=== PATIENT | male | born 1960 | race African-American/Black ===

== ENCOUNTER 2019-11-20 18:07 | Emergency (ER) | payer MEDICARE, MEDICAID ==
[~2019-11-20] VITALS: Ht 182.9 cm; Wt 100.0 kg
[~2019-11-20 18:07] MED LIST: AMLO5TAB4 PO; CLOP75TA4 PO; DIOVAN; GABAPENTIN; HYDR-1348 PO; NORVASC; OMEP20CA4 PO; PLAVIX; PRAV20TA PO; ZOCOR; [UNRECOGNIZED DRUG - OTHER]
[2019-11-20] MEDS ORDERED: IBUPROFEN 600MG TABLET PO STA (18:37)
[2019-11-20] MEDS ORDERED: ONDANSETRON 4MG ODT PO STA (18:37)
[2019-11-20] MEDS ORDERED: AMLODIPINE 5MG TABLET PO ONE (21:45)
[2019-11-20 23:00] LABS: BASOPHILS % 0.8 % (0.0-2.0); EOSINOPHILS % 0.1 % (0.0-5.0); HEMOGLOBIN. 13.8 g/dL (14.0-18.0); LYMPHOCYTES % 11.2 % (20.0-50.0); MEAN CORPUSCULAR HEMOGLOBIN 28.9 pg (28.0-32.0); MEAN CORPUSCULAR VOLUME 83.9 fL (80.0-94.0); MEAN PLATELET VOLUME 7.8 fl (7.4-10.4); MONOCYTES % 4.1 % (2.0-8.0); NEUTROPHILS % 83.8 % (40.0-76.0); PLATELET 265 x1000/uL (130-400); RED BLOOD CELL COUNT 4.77 mill/uL (4.7-6.1); RED CELL DISTRIBUTION WIDTH 13.2 % (11.6-14.6)
[2019-11-20 23:04] LABS: CHLORIDE 104 mEq/L (98-107)
[2019-11-20] MEDS ORDERED: CLONIDINE 0.1MG TABLET PO ONE (23:30)
[2019-11-21 00:41] VITALS: BP 152/96
== END 2019-11-21 00:42 | disposition home or self-care (01) ==
LOC: ER 18:07
DX: I16.0 Hypertensive urgency (principal); N28.9 Disorder of kidney and ureter, unspecified; H10.213 Acute toxic conjunctivitis, bilateral; J45.909 Unspecified asthma, uncomplicated; Z79.899 Other long term (current) drug therapy
CPT/HCPCS: 36415; 80053; 85025; 93005; 99284; Q0162